=== PATIENT | female | born 1935 | race Caucasian/White ===

== ENCOUNTER 2017-08-05 16:10 | Inpatient (IN) | payer OTHER, BC ==
--- NOTE | 2017-08-05 16:27 | PDOC ---
History of Present Illness - General Chief Complaint: Shortness of Breath Stated Complaint: SOB Time Seen by Provider: 08/05/17 16:15 - History of Present Illness Initial Comments: 08/05/17 16:53 The patient is an 82 year old female with a history of HTN, HLD, Dementia who presents for evaluation of SOB. The patient is a poor historian, but reports acute onset of SOB earlier today prompting her presentation to the ED for evaluation. She notes difficulty talking secondary to her SOB and denies any exacerbating factors. She does endorse some chest pain, but otherwise denies fevers, chills, cough, nausea, vomiting, abdominal pain, or changes with urination or bowel movements. Past History - Past Medical History Allergies/Adverse Reactions: Allergies Allergy/AdvReac Type Severity Reaction Status Date / Time iodine Allergy Verified 08/05/17 16:39 Penicillins Allergy Verified 08/05/17 16:37 Sulfa (Sulfonamide Allergy Verified 08/05/17 16:38 Antibiotics) Home Medications: Ambulatory Orders Aspirin 81 mg PO DAILY 08/05/17 Clopidogrel Bisulfate [Plavix] 75 mg PO DAILY 08/05/17 Diltiazem HCl [Cardizem Sr] 30 mg PO BID 08/05/17 Ergocalciferol [Vitamin D2] 50,000 unit PO WEEKLY 08/05/17 Escitalopram Oxalate [Lexapro -] 10 mg PO DAILY 08/05/17 Famotidine [Pepcid -] 20 mg PO DAILY 08/05/17 Pravastatin Sodium [Pravachol (Nf)] 40 mg PO HS 08/05/17 Review of Systems - Review of Systems Comments:: 08/05/17 17:10 Constitutional: No fevers, chills, fatigue, malaise HEENT: No Rhinorrhea, nasal congestion, visual changes Cardiovascular: Chest pain. No syncope, palpitations, lightheadedness Respiratory: SOB. No Cough, Hemoptysis, Gastrointestinal: No Abdominal pain, Nausea, Vomiting, Constipation, Diarrhea, Melena Genitourinary: No Dysuria, Frequency, Urgency, Hesitancy, Hematuria, Flank pain Musculoskeletal: No Myalgia, arthralgia Skin: No rashes, itching, bruising, pallor Neurologic: No Headache, Dizziness, Numbness, Weakness, or Tingling Psychiatric: No Hallucinations. No SI or HI *Physical Exam - Physical Exam Comments: 08/05/17 17:10 General Appearance: Nourished. No Apparent Distress HEENT: EOMI, DAKSHA. No Pharyngeal Erythema, Tonsillar Exudate, Tonsillar Erythema Neck: No Cervical Lymphadenopathy Respiratory/Chest: Lungs Clear, Normal Breath Sounds. No Crackles, Rales, Rhonchi, Wheezing Cardiovascular: Regular Rhythm, Regular Rate. No JVD, Murmur, Gallops, Rubs Gastrointestinal/Abdominal: Normal Bowel Sounds, Soft. No Guarding, Rebound, Tenderness Musculoskeletal: No CVA Tenderness Extremity: 1+ Pitting Edema in the lower extremities. Normal Capillary Refill Integumentary: Normal Color, Dry, Warm Neurologic: Fully Oriented, Alert, Normal Mood/Affect, Normal Response, Heart Score/ECG Review #1 ECG reviewed & interpreted by me at: 17:11 General ECG Interpretation: Sinus Rhythm, Normal Rate, Normal Intervals, No acute ischemic changes ED Treatment Course - LABORATORY CBC & Chemistry Diagram: 08/06/17 05:40 08/06/17 05:40 Medical Decision Making - Medical Decision Making 08/05/17 17:11 The patient is an 82 year old female with a history of HTN, HLD, Dementia who presents for evaluation of SOB. Differential includes but is not limited to: COPD, CHF, PE, Pneumonia, Infectious, Metabolic Derangement. Given the patient' s history and physical exam, we will obtain a cbc, cmp, troponin, bnp, d-dimer, ekg, and chest plain film to evaluate further for possible etiologies. The patient is resting comfortably on supplemental O2. We will continue to monitor and reassess while in the ED. 08/05/17 22:13 CBC, cmp, troponin, bnp, d-dimer are unremarkable. Chest plain film demonstrates concerns for a right sided pleural effusion as preliminarily read by ER physician. Given the patient's chest pain, SOB, and hypoxia, we believe she requires admission for further management at this time. We discussed the case with the hospitalist team who accepted the patient. We discussed the results and the plan with the patient who voiced understanding and is agreeable with the plan. *DC/Admit/Observation/Transfer Diagnosis at time of Disposition: SOB (shortness of breath), Hypoxia Chest pain Qualifiers: Chest pain type: unspecified Qualified Code(s): R07.9 - Chest pain, unspecified - Discharge Dispostion Condition at time of disposition: Stable Decision to Admit order: Yes - Referrals - Patient Instructions - Post Discharge Activity
--- NOTE | 2017-08-05 16:54 | PDOC ---
Attending Attestation - Resident Resident Name: Gerber Odonnell - ED Attending Attestation I have performed the following: I have examined & evaluated the patient, The case was reviewed & discussed with the resident, I agree w/resident's findings & plan, Exceptions are as noted - HPI HPI: 08/05/17 18:13 The patient is an 82 year old female with a significant past medical history of afib, CHF, GERD, dementia, and HLD who presents to the emergency department for evaluation of shortness of breath. The patient reports shortness of breath and mild chest pain beginning today with no modifying factors. She reports an associated symptom of generalized weakness. The patient is a poor historian. The patient denies changes in vision, headache, and dizziness. Denies fevers, chills, nausea, vomiting, diarrhea, and constipation. Denies dysuria, frequency, urgency, and hematuria. Allergies: Iodine, Penicillins,Sulfonamide antibiotics Past surgical history: left/right heart catheterization coronary intravascular stent placement. Social history: No reported cigarette, alcohol, or drug use. - Physicial Exam PE: 08/05/17 18:14 agree with resident exam - Medical Decision Making 08/05/17 16:48 82yo F with unknown medical hx presents to the ED with sudden CP, SOB, and generalized weakness for a few hours. Pt hypoxic to 87% on arrival, improves with 3L NC to mid 90s. Exam with diminished BS throughout and 1+ LE edema. DDx includes but not limited to PE vs PNA vs CHF vs ACS. Plan -await further hx from -labs -cxr -likely admit 08/05/17 20:30 Initial work up with neg trop, normal BNP. Given elevated heart risk, will admit for cardiac work up Case discussed in detail with admitting physician Dr. Woodruff including history, physical exam and ancillary studies. Admitting physician has assumed care for the patient, will follow all pending diagnostics and will complete the evaluation and treatment. Heart Score/ECG Review #1 08/05/17 16:52 My EKG read: Sinus rhythm, rate 73, +PACs, normal axis, no SEGUN, no SEGUN or TWI. Q wave in III
[2017-08-05 17:36] LABS: BASO % 0.5 % (0-2.0); EOS % 0.4 % (0-4.5); HEMATOCRIT 43.1 % (32.4-45.2); HEMOGLOBIN 14.1 GM/dL (10.7-15.3); LYMPH % 7.5 % (8-40); MCH 30.2 pg (25.7-33.7); MCHC 32.7 g/dl (32.0-36.0); MEAN CELL VOLUME 92.3 fl (80-96); MEAN PLT VOLUME 8.1 fl (7.5-11.1); MONO % 6.2 % (3.8-10.2); NEUT % 85.4 % (42.8-82.8); PLATELET COUNT 202 K/MM3 (134-434); RBC 4.67 M/mm3 (3.60-5.2); RDW 15.5 % (11.6-15.6); WHITE BLOOD COUNT 7.5 K/mm3 (4.0-10.0)
[2017-08-05 18:14] LABS: ALBUMIN 3.8 g/dl (3.4-5.0); ANION GAP 9 (8-16); BILIRUBIN,TOTAL 0.3 mg/dL (0.2-1.0); BLOOD UREA NITROGEN 22 mg/dL (7-18); CALCIUM 8.6 mg/dL (8.5-10.1); CHLORIDE 109 mmol/L (98-107); CO2 26 mmol/L (21-32); CREATININE 1.1 mg/dL (0.55-1.02); GLUCOSE,RANDOM 118 mg/dL (74-106); POTASSIUM 4.1 mmol/L (3.5-5.1); SGOT/AST 23 U/L (15-37); SGPT/ALT 32 U/L (12-78); SODIUM 144 mmol/L (136-145); TOT PROT 7.5 g/dl (6.4-8.2)
[2017-08-05 18:16] LABS: ALK PHOS 71 U/L (45-117); N-TERMINAL BNP 121.09 pg/ml (5-450)
[2017-08-05] MEDS ORDERED: FUROSEMIDE 40 MG/4 ML INJECTABLE VIAL IVPUSH ONE (20:00)
[2017-08-05] MEDS ORDERED: FUROSEMIDE 40 MG/4 ML INJECTABLE VIAL ONE (20:15)
--- NOTE | 2017-08-05 20:39 | HP ---
CHIEF COMPLAINT: Shortness of breath HISTORY OF PRESENT ILLNESS: 82yo Japanese F with history of HTN, CAD, possible SSS s/p ppm placement who was brought in by ambulance with shortness of breath that started around dinner time this afternoon. Pt is a poor medical reception specialist, however she reports her shortness of breath started around dinner time. Per ambulance report she desaturated down to 85% on RA and was placed on 2LNC with saturation back to 92% . Pt also endorses a nonproductive cough recently. Denies fever/chills, rhinorrhea, ear pain, sinus pressure, CP/discomfort, palpitations, abdominal pain, diarrhea/constipation, dysuria, and polyuria. ER course was notable for: (1) CXR - PPM noted; small pleural effusion R, prominent hilar lung marksing (2) 2LNC PAST MEDICAL HISTORY: HTN CAD PPM placement (questionable SSS; put in for frequent syncope episodes) ?CHF and ?CVA per paperwork brought with pt PAST SURGICAL HISTORY: PPM placement Social History: Smoking: None Alcohol: None Drugs: None Family History: Allergies iodine Allergy (Verified 08/05/17 16:39) Penicillins Allergy (Verified 08/05/17 16:37) Sulfa (Sulfonamide Antibiotics) Allergy (Verified 08/05/17 16:38) HOME MEDICATIONS: Home Medications Medication Instructions Recorded Aspirin 81 mg PO DAILY 08/05/17 Clopidogrel Bisulfate [Plavix] 75 mg PO DAILY 08/05/17 Diltiazem HCl [Cardizem Sr] 30 mg PO BID 08/05/17 Ergocalciferol [Vitamin D2] 50,000 unit PO WEEKLY 08/05/17 Escitalopram Oxalate [Lexapro -] 10 mg PO DAILY 08/05/17 Famotidine [Pepcid -] 20 mg PO DAILY 08/05/17 Pravastatin Sodium [Pravachol (Nf)] 40 mg PO HS 08/05/17 REVIEW OF SYSTEMS CONSTITUTIONAL: Absent: fever, chills, diaphoresis, generalized weakness, malaise, loss of appetite, weight change HEENT: Absent: rhinorrhea, nasal congestion, throat pain, throat swelling, difficulty swallowing, mouth swelling, ear pain, eye pain, visual changes CARDIOVASCULAR: Absent: chest pain, syncope, palpitations, irregular heart rate, lightheadedness , peripheral edema RESPIRATORY: PRESENT: cough, shortness of breath Absent: dyspnea with exertion, orthopnea, wheezing, stridor, hemoptysis GASTROINTESTINAL: Absent: abdominal pain, abdominal distension, nausea, vomiting, diarrhea, constipation, melena, hematochezia GENITOURINARY: Absent: dysuria, frequency, urgency, hesitancy, hematuria, flank pain NEUROLOGIC: Absent: headache, focal weakness or paresthesias, dizziness, unsteady gait, seizure, mental status changes, bladder or bowel incontinence PHYSICAL EXAMINATION Vital Signs - 24 hr 08/05/17 08/05/17 08/05/17 16:29 17:23 18:35 Temperature 97.9 F Pulse Rate 65 Pulse Rate [ 76 Right Radial] Respiratory 18 18 18 Rate Blood Pressure 123/47 Blood Pressure 135/62 [Left Arm] O2 Sat by Pulse 94 L 92 L 97 Oximetry (%) 08/05/17 19:35 Temperature Pulse Rate Pulse Rate [ 70 Right Radial] Respiratory 20 Rate Blood Pressure Blood Pressure 135/62 [Left Arm] O2 Sat by Pulse 94 L Oximetry (%) GENERAL: NAD, Awake, alert, and fully oriented HEENT: EOMI, GOLDEN, sclera anicteric, moist mucosa NECK: No JVD LUNGS: Diminished breath sounds at the bases, no other wheezing, rhonchi heard. 2LNC 92% HEART: RRR, normal S1 and S2 without murmur ABDOMEN: Soft, nontender, nondistended, normoactive bowel sounds, no guarding. No hepatomegaly. MUSCULOSKELETAL: No CVA tenderness. EXTREMITIES: 2+ DP pulses, warm, well-perfused. 1+ peripheral edema. NEUROLOGICAL: Nonfocal. Normal speech. Normal gait. PSYCHIATRIC: Cooperative. Good eye contact. Appropriate mood and affect. SKIN: Warm, dry, no rashes or lesions noted Laboratory Results - last 24 hr 08/05/17 08/05/17 08/05/17 17:22 17:22 17:22 WBC 7.5 RBC 4.67 Hgb 14.1 Hct 43.1 MCV 92.3 MCH 30.2 MCHC 32.7 RDW 15.5 Plt Count 202 MPV 8.1 Neutrophils % 85.4 H Lymphocytes % 7.5 L Monocytes % 6.2 Eosinophils % 0.4 Basophils % 0.5 Nucleated RBC % 0 D-Dimer 442 Sodium 144 Potassium 4.1 Chloride 109 H Carbon Dioxide 26 Anion Gap 9 BUN 22 H Creatinine 1.1 H Creat Clearance w eGFR 47.43 Random Glucose 118 H Calcium 8.6 Total Bilirubin 0.3 AST 23 ALT 32 Alkaline Phosphatase 71 Creatine Kinase 193 H Creatine Kinase Index 3.0 CK-MB (CK-2) 5.850 H Troponin I < 0.02 B-Natriuretic Peptide 121.09 Total Protein 7.5 Albumin 3.8 ASSESSMENT/PLAN: 1) Shortness of breath --Volume overloaded vs. COPD/asthma --Lasix 20mg IVP now --Echo in AM for assessment of pre-existing deficits --D-dimer negative 2) CAD history --Continue ASA 81mg PO --Plavix 75mg qDaily --EKG showed NSR w/o ST abnormalities with normal axis and R-wave progression QTc --Troponin negative on admission 3) H/o depression --Continue Lexapro 10mg qdaily 4) H/o HLD --Continue lipitor 40mg HS FEN: --avoid fluids --no electrolyte abnormalities --Sodium controlled diet PPX: DVT - Heparin SQ GI - Protonix 40mg qdaily due to home medications Medications have been reconciled by patient's previous paperwork (in chart) Dispo: Obs Case discussed with Dr. Ranjan Hardy, DO - IM PGY-1 Visit type - Emergency Visit Emergency Visit: Yes ED Registration Date: 08/05/17 Care time: The patient presented to the Emergency Department on the above date and was hospitalized for further evaluation of their emergent condition. - New Patient This patient is new to me today: Yes Date on this admission: 08/05/17 - Critical Care Critical Care patient: No Hospitalist Screening - Colonoscopy Questionnaire Colonoscopy Questionnaire: Colonoscopy Questionnaire - Patient: 50 - 75 years old and never had a screening colonoscopy: Unknown History of colon or rectal polyps, or CA: Unknown History of IBD, Crohn's disease or UC: Unknown History of abdominal radiation therapy as a child: Unknown - Relative: 1 with colon or rectal CA, or polyps at age 60 or younger: Unknown Colon or rectal CA diagnosed at age 45 or younger: Unknown Multiple relatives with colon or rectal CA: Unknown - Outcome: Screening Result: Negative Screen
[2017-08-05] MEDS ORDERED: PANTOPRAZOLE 40 MG TABLET (FP) PO ONE (20:49)
[2017-08-05] MEDS: dilTIAZem HCL 30 MG TABLET (FP) PO SCH (22:47)
[2017-08-05] MEDS: HEPARIN NA (PORCINE) 5,000 UNITS/ML 1ML VIAL SQ SCH (22:47)
[2017-08-05] MEDS: ATORVASTATIN CA 40 MG TABLET (FP) PO SCH (22:47)
[2017-08-06 02:36] VITALS: BMI 31.1
[2017-08-06] MEDS ORDERED: ALBUTEROL SO4 0.083% IH SOL 2.5 MG/3 ML VIAL.NEB. NEB PRN (05:11)
[2017-08-06] MEDS ORDERED: levoFLOXacin 750 MG TABLET PO ONE (05:27)
--- NOTE | 2017-08-06 05:28 | PN ---
Teaching Attending Note Name of Resident: Bob Hardy ATTENDING PHYSICIAN STATEMENT I saw and evaluated the patient. I reviewed the resident's note and discussed the case with the resident. I agree with the resident's findings and plan as documented. SUBJECTIVE: OBJECTIVE: ASSESSMENT AND PLAN: this is a an 82 y/o female with hx of current smoke, HTN, DL, CAD, sick sinus syndrome and COPD presented with symptoms of worsening SOB that started yesterday according to the patient she started becoming SOB yesterday and her symptoms did not improve with the symptoms so she decided to come to the hospital admit to med/surg start the patient on nebulizer treatment with albuterol and ipratropium bromide c/w home medication levofloxacin 750mg daily pulmonary consultation
[2017-08-06] MEDS: dilTIAZem HCL 30 MG TABLET (FP) PO SCH ×3 (07:00→21:29)
[2017-08-06] MEDS: HEPARIN NA (PORCINE) 5,000 UNITS/ML 1ML VIAL SQ SCH ×3 (07:00→21:29)
[2017-08-06 07:32] LABS: HEMATOCRIT 41.8 % (32.4-45.2); HEMOGLOBIN 13.8 GM/dL (10.7-15.3); MCH 30.7 pg (25.7-33.7); MCHC 33.1 g/dl (32.0-36.0); MEAN CELL VOLUME 92.6 fl (80-96); MEAN PLT VOLUME 8.6 fl (7.5-11.1); PLATELET COUNT 184 K/MM3 (134-434); RBC 4.51 M/mm3 (3.60-5.2); RDW 15.4 % (11.6-15.6); WHITE BLOOD COUNT 6.7 K/mm3 (4.0-10.0)
[2017-08-06 07:51] LABS: CHLORIDE 107 mmol/L (98-107); INR 1.1 (0.82-1.09); POTASSIUM 3.6 mmol/L (3.5-5.1); PROTHROMBIN TIME (PATIENT) 12.4 SEC (9.7-13.0); SODIUM 144 mmol/L (136-145)
[2017-08-06 08:00] LABS: ANION GAP 10 (8-16); BLOOD UREA NITROGEN 19 mg/dL (7-18); CALCIUM 8.7 mg/dL (8.5-10.1); CO2 27 mmol/L (21-32); CREATININE 0.9 mg/dL (0.55-1.02); GLUCOSE,RANDOM 86 mg/dL (74-106)
[2017-08-06] MEDS: ALBUTEROL SO4 2.5/IPRATROPIUM 0.5 INH SOL 3 ML VIAL.NEB. NEB SCH ×3 (08:00→20:35)
[2017-08-06] MEDS: PANTOPRAZOLE 40 MG TABLET (FP) PO SCH (10:23)
[2017-08-06] MEDS: CLOPIDOGREL BISULFATE 75 MG TABLET (FP) PO SCH (10:23)
[2017-08-06] MEDS: ASPIRIN 81 MG CHEWABLE TABLETS PO SCH (10:23)
[2017-08-06] MEDS: ESCITALOPRAM OXALATE 10 MG TABLET (FP) PO SCH (10:23)
[2017-08-06] MEDS ORDERED: FUROSEMIDE 40 MG/4 ML INJECTABLE VIAL IVPUSH ONE (15:34)
--- NOTE | 2017-08-06 15:34 | PN ---
Progress Note (short form) - Note Progress Note: c/o dyspnea at rest. states it is not related to any symptoms at this time or stress. denies CP, fever, chills, cough, recent changes to medications. as per whom is present at bedside. states she is very anxious and has been accusing him of things "that she dreams up". states when she is anxious she does complain of dyspnea that he usually gives her some prednisone as her PMD has told her to do so but he did not do that yesterday that she insisted on coming to the hospital. Current Medications Generic Name Dose Route Start Last Admin Trade Name Freq PRN Reason Stop Dose Admin Albuterol Sulfate 1 amp 08/06/17 05:11 Ventolin 0.083% Nebulizer Soln - NEB Q6H PRN SHORT OF BREATH/WHEEZING Albuterol/Ipratropium 1 amp 08/06/17 08:00 08/06/17 14:00 Duoneb - NEB 1 amp RTID MYA Administration Aspirin 81 mg 08/06/17 10:00 08/06/17 10:23 Asa - PO 81 mg DAILY MYA Administration Atorvastatin Calcium 40 mg 08/05/17 22:00 08/05/17 22:47 Lipitor - PO 40 mg HS MYA Administration Clopidogrel Bisulfate 75 mg 08/06/17 10:00 08/06/17 10:23 Plavix - PO 75 mg DAILY MYA Administration Diltiazem HCl 30 mg 08/05/17 22:00 08/06/17 15:17 Cardizem - PO 30 mg TID MYA Administration Escitalopram Oxalate 10 mg 08/06/17 10:00 08/06/17 10:23 Lexapro - PO 10 mg DAILY MYA Administration Heparin Sodium (Porcine) 5,000 unit 08/05/17 22:00 08/06/17 15:17 Heparin - SQ 5,000 unit TID MYA Administration Levofloxacin 750 mg 08/06/17 06:00 08/06/17 06:59 Levaquin - PO 750 mg DAILY@0600 MYA Administration Pantoprazole Sodium 40 mg 08/06/17 10:00 08/06/17 10:23 Protonix - PO 40 mg DAILY MYA Administration Last Vital Signs Temp Pulse Resp BP Pulse Ox 97.9 F 80 20 149/61 96 08/06/17 14:00 08/06/17 14:00 08/06/17 12:00 08/06/17 14:00 08/06/17 12:00 General mild anxious CV S1 S2 RRR no murmur/rub/gallop LUngs crackles B/L bases Abdomen soft NT/ND Extremities no pedal edema CBCD WBC 6.7 K/mm3 (4.0-10.0) 08/06/17 05:40 RBC 4.51 M/mm3 (3.60-5.2) 08/06/17 05:40 Hgb 13.8 GM/dL (10.7-15.3) 08/06/17 05:40 Hct 41.8 % (32.4-45.2) 08/06/17 05:40 MCV 92.6 fl (80-96) 08/06/17 05:40 MCHC 33.1 g/dl (32.0-36.0) 08/06/17 05:40 RDW 15.4 % (11.6-15.6) 08/06/17 05:40 Plt Count 184 K/MM3 (134-434) 08/06/17 05:40 MPV 8.6 fl (7.5-11.1) 08/06/17 05:40 CMP Sodium 144 mmol/L (136-145) 08/06/17 05:40 Potassium 3.6 mmol/L (3.5-5.1) 08/06/17 05:40 Chloride 107 mmol/L (98-107) 08/06/17 05:40 Carbon Dioxide 27 mmol/L (21-32) 08/06/17 05:40 Anion Gap 10 (8-16) 08/06/17 05:40 BUN 19 mg/dL (7-18) H 08/06/17 05:40 Creatinine 0.9 mg/dL (0.55-1.02) 08/06/17 05:40 Creat Clearance w eGFR 47.43 (>60) 08/05/17 17:22 Calcium 8.7 mg/dL (8.5-10.1) 08/06/17 05:40 Total Bilirubin 0.3 mg/dL (0.2-1.0) 08/05/17 17:22 AST 23 U/L (15-37) 08/05/17 17:22 ALT 32 U/L (12-78) 08/05/17 17:22 Alkaline Phosphatase 71 U/L (45-117) 08/05/17 17:22 Total Protein 7.5 g/dl (6.4-8.2) 08/05/17 17:22 Albumin 3.8 g/dl (3.4-5.0) 08/05/17 17:22 A/P 82yo F [facility] dementia, HTN, dyslipidemia, CAD s/p stents, SSS s/p PPM and sarcoidosis? presented to the ER with dyspnea 1. Dypnea- liekly due to anxiety. however started reporting dyspnea when patient was resting comfortable. states "i feel like Im dying". pt assessed and has some crackles but good air entry. saturating 95% on RA. will obtain CXR to evaluate. received lasix 20mg IVP x1 yesterday. does have crackles on exam will await repeat CXR. give lasix if showing vasc congestion. 2. ELIZABETH- liekly pre-renal. received lasix in the ER. now resolved 3. Pulmonary nodules- seen on CT scan. as per family has hx of nodules and think they were bx in the past. informed should follow up [facility] PMD as outpatient for possible repeat testing if indicated 4. 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 good response to low dose seroquel in the past. will order as needed. Qtc 445 5. HTN- controlled. cont current management 6. ?Sarcoidosis- on pred 5mg daily? confusion if this is a current medication or left over prescription. will need to verify home meds. family to bring in bottles tonight 7. CAD s/p stents 8. SSS s/p PPM 9. spoke with children and present at bedside. all questions answered. verbalized understanding and agreement with plan. possible discharge tomorrow Visit type - Emergency Visit Emergency Visit: Yes ED Registration Date: 08/06/17 Care time: The patient presented to the Emergency Department on the above date and was hospitalized for further evaluation of their emergent condition. - New Patient This patient is new to me today: Yes Date on this admission: 08/06/17 - Critical Care Critical Care patient: No - Discharge Referral Referred to [facility] Med P.C.: No
[2017-08-06] MEDS ORDERED: FUROSEMIDE 40 MG/4 ML INJECTABLE VIAL ONE (18:36)
[2017-08-06] MEDS ORDERED: QUEtiapine FUMARATE 25 MG TABLET (FP) PO PRN (18:50)
[2017-08-06] MEDS: ATORVASTATIN CA 40 MG TABLET (FP) PO SCH (21:29)
[2017-08-07] MEDS: dilTIAZem HCL 30 MG TABLET (FP) PO SCH (06:01)
[2017-08-07] MEDS: HEPARIN NA (PORCINE) 5,000 UNITS/ML 1ML VIAL SQ SCH (06:01)
[2017-08-07] MEDS: ALBUTEROL SO4 2.5/IPRATROPIUM 0.5 INH SOL 3 ML VIAL.NEB. NEB SCH ×2 (08:00→13:00)
[2017-08-07 08:19] LABS: ANION GAP 11 (8-16); BLOOD UREA NITROGEN 25 mg/dL (7-18); CALCIUM 9.5 mg/dL (8.5-10.1); CHLORIDE 103 mmol/L (98-107); CO2 27 mmol/L (21-32); CREATININE 1.3 mg/dL (0.55-1.02); GLUCOSE,RANDOM 113 mg/dL (74-106); MAGNESIUM 2.4 mg/dL (1.8-2.4); POTASSIUM 3.8 mmol/L (3.5-5.1); SODIUM 141 mmol/L (136-145)
[2017-08-07] MEDS: ASPIRIN 81 MG CHEWABLE TABLETS PO SCH (09:30)
[2017-08-07] MEDS: ESCITALOPRAM OXALATE 10 MG TABLET (FP) PO SCH (09:30)
[2017-08-07] MEDS: CLOPIDOGREL BISULFATE 75 MG TABLET (FP) PO SCH (09:30)
[2017-08-07] MEDS: PANTOPRAZOLE 40 MG TABLET (FP) PO SCH (09:30)
--- NOTE | 2017-08-07 11:22 | DS ---
Physical Exam: SUBJECTIVE: Patient seen and examined at bedside feels better today and less dhortnes of breath after receiving lasix yesterday. patient did not sleep well because she was urinating all night OBJECTIVE: Vital Signs Period Temp Pulse Resp BP Sys/Jones Pulse Ox Last 24 Hr 97.9 F-98.4 F 75-90 18-20 109-153/53-85 96-96 PHYSICAL EXAM GENERAL: The patient is awake, alert, and fully oriented, in no acute distress. HEAD: Normal with no signs of trauma. ENT: moist mucous membranes. NECK: supple. LUNGS: fine bibasilar crackles otherwise clear to auscultation bilaterally HEART: RRR S1 S2 no murmur ABDOMEN: Soft, nontender, nondistended, normoactive bowel sounds, no guarding, no rebound EXTREMITIES: warm, well-perfused, non pitting edema NEUROLOGICAL: Cranial nerves II through XII grossly intact LABS Laboratory Results - last 24 hr 08/07/17 06:30 Sodium 141 Potassium 3.8 Chloride 103 Carbon Dioxide 27 Anion Gap 11 BUN 25 H Creatinine 1.3 H Random Glucose 113 H Calcium 9.5 Magnesium 2.4 HOSPITAL COURSE: Date of Admission:08/06/17 Date of Discharge: 08/07/17 82F with multiple medical problems presents to the hospital with shortness of breath. Patient has an unclear history of either berryliosis or sarcoidosis. 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 she had a CT scan which did not show any infiltrate or consolidation and Abx were stopped after 1 day. She did have a lung nodule that she will have follow up for with PCP. She was given one dose of lasix for diuresis and responded appropriately with large volume urine output and resolution of shortness of breath. She is currently asymptomatic and asking to be discharged. Minutes to complete discharge: 35 Discharge Summary Reason For Visit: CHEST PAIN HYPOXIA SOB Current Active Problems Chest pain (Acute) Hypoxia (Acute) SOB (shortness of breath) (Acute) Condition: Stable - Instructions Diet, Activity, Other Instructions: you were admitted for shortness of breath if you experience symptoms such as chest pain or shortness of breath call your doctor and/or go to the nearest emergency room. Continue a low sodium diet a lung nodule was found on the CT scan. please follow up with your primary care doctor as soon as possible for follow up and evaluation of the pulmonary nodule It was a pleasure taking care of you Referrals: Kalpesh Yadav [Non Staff, Medical] - 1 Week Disposition: HOME - Home Medications Comprehensive Discharge Medication List: Ambulatory Orders Aspirin 81 mg PO DAILY 08/05/17 Clopidogrel Bisulfate [Plavix] 75 mg PO DAILY 08/05/17 Ergocalciferol [Vitamin D2] 50,000 unit PO WEEKLY 08/05/17 Escitalopram Oxalate [Lexapro -] 10 mg PO DAILY 08/05/17 Diltiazem [Cardizem -] 30 mg PO BID 08/07/17 Famotidine [Pepcid] 20 mg PO HS 08/07/17 Folic Acid 1 mg PO DAILY 08/07/17 Pantoprazole Sodium [Protonix] 40 mg PO DAILY 08/07/17 Pravastatin Sodium 20 mg PO DAILY 08/07/17 Prednisone 1 - 2 tab PO DAILY 08/07/17 This patient is new to me today: Yes Date on this admission: 08/07/17 Emergency Visit: Yes ED Registration Date: 08/06/17 Care time: The patient presented to the Emergency Department on the above date and was hospitalized for further evaluation of their emergent condition. Critical Care patient: No - Discharge Referral Referred to [facility] Med P.C.: No
[2017-08-07 11:37] VITALS: BP 129/62; PULSE 84; TEMP 97.4
--- NOTE | 2017-08-07 11:43 | PN ---
Teaching Attending Note Name of Resident: Joe Briggs ATTENDING PHYSICIAN STATEMENT I saw and evaluated the patient. I reviewed the resident's note and discussed the case with the resident. I agree with the resident's findings and plan as documented. SUBJECTIVE:breathing has improved. no more episodes of dyspnea. dneies Cp, SOB, fever, chills, N/V/C/D OBJECTIVE: Last Vital Signs Temp Pulse Resp BP Pulse Ox 97.4 F L 84 20 129/62 96 08/07/17 09:00 08/07/17 09:00 08/07/17 09:00 08/07/17 09:00 08/07/17 09:00 General NAD lungs coarse breath sounds bases. no wheezing. good inspiratory effort ASSESSMENT AND PLAN: 82yo F [facility] PMH dementia, HTN, dyslipidemia, CAD s/p stents, SSS s/p PPM and sarcoidosis? presented to the ER with dyspnea 1. Dyspnea- liekly due to anxiety. saturating now 97% on RA. crackles heard on exam more likely due to chronic sarcoid. responded well to lasix yesterday. would have patient follow up with PMD for possible starting anxiolytic to prevent these episodes. 2. ELIZABETH- liekly pre-renal. slight uptrend. likely due to lasix. will need to have labs repeated in 2 days. 3. Pulmonary nodules- seen on CT scan. as per family has hx of nodules and think they were bx in the past. informed should follow up [facility] PMD as outpatient for possible repeat testing if indicated 4. 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 no events. seroquel was not required. 5. HTN- controlled. cont current management 6. ?Sarcoidosis- home medication received. is on 1-2 tabs of prednisone daily. would recommend to continue as prescribed. 7. CAD s/p stents 8. SSS s/p PPM 9. d/c home today. spoke with present at bedside. explained need to see PMD this week for repeat lab work to monitor kidney function. that he should also discuss with him starting medication for anxiety as well as pulmonary nodules seen on CT scan as may need repeat imaging in 3 months. verbalized understanding and agreement with plan
--- NOTE | 2017-08-07 20:44 | EKG ---
Test Reason : Blood Pressure : / mmHG Vent. Rate : 073 BPM Atrial Rate : 073 BPM P-R Int : 142 ms QRS Dur : 076 ms QT Int : 404 ms P-R-T Axes : 043 025 058 degrees QTc Int : 445 ms SINUS RHYTHM WITH PREMATURE ATRIAL COMPLEXES OTHERWISE NORMAL ECG NO PREVIOUS ECGS AVAILABLE Confirmed by JORDAN DU, NADJA ([id number]) on 08/07/2017 8:43:51 PM Referred By: Confirmed By:NADJA ORTEGA MD
== END 2017-08-07 14:37 | disposition home or self-care (01) | DRG 206 ==
LOC: JER 16:10 → JERBED 20:55 → J4W 21:58 → MERGE 08-06 06:18 → OBSVTOIN 08-06 06:18
PROVIDERS: ADMIT Internal Medicine; ATTEND Internal Medicine
DX: R09.02 Hypoxemia (principal); N17.9 Acute kidney failure, unspecified; R07.9 Chest pain, unspecified; R06.02 Shortness of breath; F03.90 Unspecified dementia, unspecified severity, without behavioral disturbance, psychotic disturbance, mood disturbance, and anxiety; I10 Essential (primary) hypertension; I25.10 Atherosclerotic heart disease of native coronary artery without angina pectoris; Z98.61 Coronary angioplasty status; Z95.0 Presence of cardiac pacemaker; F41.8 Other specified anxiety disorders; E78.5 Hyperlipidemia, unspecified
CPT/HCPCS: 36415; 71045-TC-FY; 71250-TC; 80048; 80053; 82550; 82553; 83735; 83880; 84484; 85025; 85027; 85379; 85610; 85730; 93005; 93010; 94640; 99283-25; G0378; J1644; J7620

== ENCOUNTER 2020-08-05 15:32 | Emergency (ER) | payer OTHER, BC ==
[2020-08-05 15:46] VITALS: BMI 31.4
[2020-08-05 16:44] VITALS: PULSE 65
[2020-08-05 18:00] VITALS: BP 167/73; TEMP 98.2
== END 2020-08-05 18:12 | disposition home or self-care (01) ==
LOC: JER 15:32
DX: F03.90 Unspecified dementia, unspecified severity, without behavioral disturbance, psychotic disturbance, mood disturbance, and anxiety (principal)
CPT/HCPCS: 71045-TC-FY; 93005; 93010; 99284-25